=== PATIENT | male | born 1980 | race Caucasian/White ===

== ENCOUNTER 2020-04-09 07:05 | Day surgery (SDC) | payer BC ==
--- NOTE | 2020-04-08 12:14 | PCM.PREANE ---
<David Koch R - Last Filed: 04/09/20 07:39> Preanesthetic Assessment - Anesthesia/Transfusion/Family Hx Anesthesia History: Prior Anesthesia Without Reaction Family History of Anesthesia Reaction: No Transfusion History: No Prior Transfusion(s) - Review of Systems General: No Symptoms Pulmonary: No Symptoms Cardiovascular: Chest Pain ("Bloating and pressure up in my chest. That's why i am here!") Gastrointestinal: Abdominal Pain (dull constant uncomfortable) Neurological: No Symptoms Other: Reports: Liver Problems ("non alcoholic fatty liver disease") - Physical Assessment NPO Status Date: 04/08/20 NPO Status Time: 23:00 Height: 1.7 m Weight: 98 kg ASA Class: 2 Mental Status: Alert & Oriented x3 Airway Class: Mallampati = 2 Dentition: Reports: Normal Dentition Thyro-Mental Finger Breadths: 2 (Tabares) Mouth Opening Finger Breadths: 2 ROM/Head Extension: Full Lungs: Clear to Auscultation, Normal Respiratory Effort Cardiovascular: Regular Rate, Regular Rhythm - Allergies Allergies/Adverse Reactions: Allergies Allergy/AdvReac Type Severity Reaction Status Date / Time No Known Allergies Allergy Verified 04/08/20 13:17 - Blood Blood Available: No Product(s) Available: None - Anesthesia Plan Pre-Op Medication Ordered: None - Acknowledgements Anesthesia Type Planned: MAC Pt an Appropriate Candidate for the Planned Anesthesia: Yes Alternatives and Risks of Anesthesia Discussed w Pt/Guardian: Yes Pt/Guardian Understands and Agrees with Anesthesia Plan: Yes PreAnesthesia Questionnaire Gastrointestinal History: Reports: GERD - SUBSTANCE USE Tobacco Use Status *Q: Never Tobacco User Tobacco Use Within Last Twelve Months: No Second Hand Smoke Exposure: Yes Days Per Week of Alcohol Use: 0 Number of Drinks Per Day: 0 Total Drinks Per Week: 0 Recreational Drug Use History: No - HOME MEDS Home Medications: Home Meds Benazepril [Lotensin] 40 mg PO DAILY 04/08/20 [History] Pantoprazole Sodium [Protonix] 40 mg PO DAILY 04/08/20 [History] valACYclovir HCl [Valtrex] 500 mg PO ASDIRECTED PRN 04/08/20 [History] <Miri Glass - Last Filed: 04/09/20 09:02> Preanesthetic Assessment - Procedure Proposed Procedure: Diagnostic EGD - Anesthesia/Transfusion/Family Hx Anesthesia History: Prior Anesthesia Without Reaction Family History of Anesthesia Reaction: No Transfusion History: No Prior Transfusion(s) Intubation History: Unknown - Review of Systems Cardiovascular: No Symptoms (HTN, elevated cholesterol) Gastrointestinal: No Symptoms (GERD/history of gastric ulcer), Abdominal Pain (epigastric pain), Difficulty Swallowing Other: Reports: Sinus Problem (allergic rhinitis) - Physical Assessment NPO Status Date: 04/08/20 Vital Signs: HR:75 Sat:95% Temp:36.8 Resp:20 B/P:116/77 ASA Class: 2 Mental Status: Alert & Oriented x3 - Anesthesia Plan Pre-Op Medication Ordered: None - Acknowledgements Anesthesia Type Planned: MAC Pt an Appropriate Candidate for the Planned Anesthesia: Yes Alternatives and Risks of Anesthesia Discussed w Pt/Guardian: Yes Pt/Guardian Understands and Agrees with Anesthesia Plan: Yes PreAnesthesia Questionnaire - CURRENT (IN HOUSE) MEDS Current Meds: Current Medications Lactated Ringer's (Ringers, Lactated) 1,000 mls @ 125 mls/hr IV ASDIRECTED CAROLIN Stop: 04/09/20 23:00 Last Admin: 04/09/20 07:30 Dose: 125 mls/hr Documented by: Lidocaine/Sodium Bicarbonate (Buffered Lidocaine 1% In Ns 8.4%) 0.25 ml IDERM ONETIME PRN PRN Reason: Prior to IV Start Stop: 04/09/20 18:00 Last Admin: 04/09/20 07:29 Dose: 0.25 ml Documented by: Sodium Chloride (Saline Flush) 10 ml FLUSH ASDIRECTED PRN PRN Reason: Keep Vein Open Stop: 04/09/20 18:00 Discontinued Medications Fentanyl (Sublimaze) Confirm Administered Dose 100 mcg .ROUTE .STK-MED ONE Stop: 04/09/20 07:01 Fentanyl (Sublimaze) Confirm Administered Dose 100 mcg .ROUTE .STK-MED ONE Stop: 04/09/20 07:03 Lidocaine HCl (Xylocaine-Mpf 1%) Confirm Administered Dose 4 mls @ as directed .ROUTE .STK-MED ONE Stop: 04/09/20 07:00 Propofol (Diprivan 20 Ml) Confirm Administered Dose 200 mg .ROUTE .STK-MED ONE Stop: 04/09/20 07:01
[~2020-04-09 07:05] MED LIST: Lactated Ringers 1,000 ML IV SCH; Lidocaine 1% 4 ML ONE; Lidocaine 1%/Sod Bicarbonate in NS 8.4% 1 ML Syringe IDERM PRN; Propofol 200 MG/20 ML SDV ONE; Sodium Chloride 0.9% 10 ML Syringe FLUSH PRN; fentaNYL 100 MCG/2 ML SDV ONE
[2020-04-09] MEDS ORDERED: Propofol 200 MG/20 ML SDV ONE (10:10)
--- NOTE | 2020-04-09 10:26 | PCM.PRNOTE ---
- Free Text/Narrative Note: Date: 04/09/2020 Procedure: diagnostic esophagogastroduodenoscopy Indication: chronic epigastric pain, history of reflux Endoscopist: Mik Navarrete MD Findings: perhaps some short segment metaplasia at the Z-line but otherwise grossly normal findings. Detailed Report: The patient was taken to the endoscopy suite and placed in left lateral decubitus position. Time out was performed. A bite block was placed and monitored anesthesia care was initiated. The endoscope was inserted into the mouth and advanced to the second portion of the duodenum. The duodenum appeared grossly normal. A biopsy of mucosa was obtained from the duodenal bulb with cold forceps. The pylorus was widely patent. The gastric mucosa appeared normal throughout, and no hiatal hernia was appreciated. A sample from the antral mucosa was obtained. At the Z-line, there were a few very small well circumscribed areas of orange, glandular appearing mucosa surround by paler pink esophageal mucosa. Biopsies of this and of the distal esophageal mucosa elsewhere were obtained. Air was suctioned from the stomach and the scope withdrawn. The patient tolerated the procedure well.
--- NOTE | 2020-04-09 10:29 | PCM.POSTAN ---
POST ANESTHESIA ASSESSMENT - MENTAL STATUS Mental Status: Alert - VITAL SIGNS Vital Signs: Last Vital Signs Temp 99.4 04/09/20 1025 Pulse 82 04/09/20 1025 Resp 24 04/09/20 1025 BP 109/69 04/09/20 1025 Pulse Ox 97% 04/09/20 1025 - RESPIRATORY Respiratory Status: Respiratory Rate WNL, Airway Patent, O2 Saturation Stable - CARDIOVASCULAR CV Status: Pulse Rate WNL, Blood Pressure Stable - GASTROINTESTINAL GI Status: No Symptoms - POST OP HYDRATION Hydration Status: Adequate & Stable
--- NOTE | 2020-04-09 11:20 | CT ---
CT chest Technique: Multiple axial sections through the chest were obtained. Intravenous contrast was not utilized. Small amount of oral contrast was given. Findings: Contrast is seen within the esophagus presumably from reflux. No pericardial thickening is seen. Thoracic aorta shows minimal atherosclerotic change without aneurysm. Very slight visualization of the thymus is seen. There are small scattered lymph nodes within the mediastinum which are felt to be within normal limits. No coronary artery calcification is seen. Lung window settings were reviewed which show no acute parenchymal change. Very small nodule is noted within the right middle lobe measuring about 1 mm to 1.5 mm. This is believed to be incidental. No other discrete nodule or densities are seen. No pleural effusions are noted. Osseous structures show no acute finding. Impression: 1. Small amount of gastroesophageal reflux. 2. Other findings as noted above. Nothing acute is otherwise seen. Diagnostic code #2
== END 2020-04-09 11:08 | disposition home or self-care (01) ==
LOC: JD.SDS 07:05
PROVIDERS: ATTEND Surgery
DX: K21.00 Gastro-esophageal reflux disease with esophagitis, without bleeding (principal); K29.50 Unspecified chronic gastritis without bleeding; K22.8 Other specified diseases of esophagus; I10 Essential (primary) hypertension; E78.00 Pure hypercholesterolemia, unspecified; Z01.812 Encounter for preprocedural laboratory examination; Z20.822 Contact with and (suspected) exposure to COVID-19
CPT/HCPCS: 43239; 71250; J2704; J3010; J7120; 00731